=== PATIENT | female | born 1970 | race Caucasian/White ===

== ENCOUNTER → 2023-07-30 12:33 | Outpatient (REF) | payer BC, SELFPAY | LOC: HWWDC 12:33 | PROVIDERS: ATTENDING PHYSICIAN Family Medicine | DX: Z12.31 Encounter for screening mammogram for malignant neoplasm of breast (principal) | CPT/HCPCS: 77063; 77067 ==

== ENCOUNTER → 2024-08-18 10:14 | Outpatient (REF) | payer BC, SELFPAY | LOC: HWWDC 10:14 | PROVIDERS: ATTENDING PHYSICIAN Hospitalist | DX: Z12.31 Encounter for screening mammogram for malignant neoplasm of breast (principal) | CPT/HCPCS: 77063; 77067 ==